=== PATIENT | female | born 1995 | race Caucasian/White ===

== ENCOUNTER 2016-12-25 15:45 | Emergency (ER) | payer OTHER ==
[~2016-12-25] VITALS: Ht 167.6 cm; Wt 65.9 kg
[2016-12-25 15:48] VITALS: TEMP 36.4; Ht 167.6 cm; Wt 65.9 kg
[2016-12-25 16:46] LABS: URINE APPEARANCE TURBID (CLEAR); URINE BILIRUBIN NEG (NEG); URINE COLOR YELLOW; URINE EPITHELIAL CELL AUTO >30 /lpf (0-5); URINE NITRITE POS (NEG); URINE PH 5.5 (4.5-7.5); URINE SPECIFIC GRAVITY 1.014 (1.000-1.030); UROBILINOGEN NEG (NEG); ZZUR CULT IF INDIC CLEAN CATCH YES
[2016-12-25 16:48] LABS: MANUAL MICROSCOPIC REQUIRED? NO; REVIEW REQ? NO
[2016-12-25] MEDS ORDERED: PHENAZOPYRIDINE HCL 200 MG TAB PO STA (16:49)
--- NOTE | 2016-12-25 16:56 | EMERGENCY ROOM VISIT NOTE ---
History Report prepared by Edie: Festus Gregorio Under the Supervision of: Dr. Lisa Noble D.O. First contact with patient: 15:52 Chief Complaint: URINARY SYMPTOMS Stated Complaint: LOWER BACK PAIN,URINE PAIN W/SOME BLOOD History of Present Illness The patient is a 21 year old female who presents to the Emergency Room with complaints of intermittent dysuria that started three days ago. She rates her pain as a 5/10 in severity and states that the pain is only when she is finished peeing. The patient states that she also noticed she was experiencing hematuria two days ago with only a few drops of blood at the end of peeing and a need to urinate more frequently. The patient denies that she feels as if she needs to urinate immediately following an incident of urination. She reports that she has been taking Ibuprofen and admits that it has been helping alleviate pain for a short period of time. The patient states that she has not experienced hematuria today and states that her pain is not as severe since she took Ibuprofen today. She denies abdominal pressure, headache, change in vision , fevers, chest pain, shortness of breath, nausea, vomiting, diarrhea, vaginal bleeding, vaginal discharge, a change in menstrual cycle, pain during sexual intercourse, a possible , previous urinary or bladder infection, and melena. Source of History: patient Onset: three days ago Position: other (global) Symptom Intensity: 5/10 Timing: intermittent Modifying Factors (Relieving): ibuprofen Associated Symptoms: + urinary symptoms, No fevers, No headache, No chest pain, No SOB, No nausea, No vomiting, No abdominal pain, No melena, No diarrhea Review of Systems See HPI for pertinent positives & negatives. A total of 10 systems reviewed and were otherwise negative. Past Medical & Surgical The patient reports no significant medical or surgical history. Family History Patient reports no known family medical history. Social History Smoking Status: Never Smoker Alcohol Use: occasionally Drug Use: none Marital Status: in relationship Housing Status: lives with family Occupation Status: employed Current/Historical Medications Scheduled Cephalexin (Keflex), 1 CAP PO BID Scheduled PRN Phenazopyridine HCl (Pyridium), 200 MG PO TID PRN for Frequency/Burning w/ Urination Allergies Coded Allergies: No Known Allergies (Unverified , 12/25/16) Physical Exam Vital Signs Date Time Temp Pulse Resp B/P (MAP) Pulse Ox O2 Delivery O2 Flow Rate FiO2 12/25/16 17:11 111 18 105/85 100 12/25/16 15:48 36.4 121 18 116/78 100 Room Air Physical Exam GENERAL: alert, well appearing, well nourished, no distress, non-toxic EYE EXAM: normal conjunctiva, PERRL and EOM's grossly intact OROPHARYNX: no exudate, no erythema, lips, buccal mucosa, and tongue normal and mucous membranes are moist NECK: supple, no nuchal rigidity, no adenopathy, non-tender LUNGS: Clear to auscultation. Normal chest wall mechanics HEART: no murmurs, S1 normal and S2 normal ABDOMEN: abdomen soft, non-tender, normo-active bowel sounds, no masses, no rebound or guarding. BACK: Back is symmetrical on inspection and there is no deformity, no midline tenderness, no CVA tenderness. SKIN: no rashes and no bruising UPPER EXTREMITIES: upper extremities are grossly normal. LOWER EXTREMITIES: No pitting edema. NEURO EXAM: Normal sensorium, cranial nerves II-XII grossly intact, normal speech, no gross weakness of arms, no gross weakness of legs. Gross sensation intact. Medical Decision & Procedures Laboratory Results Test 12/25/16 16:30 Urine Color YELLOW Urine Appearance TURBID (CLEAR) Urine pH 5.5 (4.5-7.5) Urine Specific Twining 1.014 (1.000-1.030) Urine Protein 2+ (NEG) Urine Glucose (UA) NEG (NEG) Urine Ketones NEG (NEG) Urine Occult Blood 3+ (NEG) Urine Nitrite POS (NEG) Urine Bilirubin NEG (NEG) Urine Urobilinogen NEG (NEG) Urine Leukocyte Esterase LARGE (NEG) Urine WBC (Auto) >30 /hpf (0-5) Urine RBC (Auto) >30 /hpf (0-4) Urine Hyaline Casts (Auto) 5-10 /lpf (0-5) Urine Epithelial Cells (Auto) >30 /lpf (0-5) Urine Bacteria (Auto) 2+ (NEG) Urine Test NEG (NEG) Laboratory results per my review. Medications Administered Medications (Trade) Dose Ordered Sig/Bartolome Route Start Time Stop Time Status Last Admin Dose Admin Cephalexin Monohydrate (Keflex Cap) 500 mg NOW ONCE PO 12/25/16 17:00 12/25/16 17:01 DC 12/25/16 16:58 500 MG Phenazopyridine HCl (Pyridium Tab) 200 mg NOW STAT PO 12/25/16 16:49 12/25/16 16:50 DC 12/25/16 16:49 200 MG ED Course 1554: The patient was evaluated in room B12B. A complete history and physical exam was performed. 1649: Pyridium Tab 200 mg PO. 1650 Upon reevaluation, the patient is feeling better. I discussed the findings and the treatment plan with the patient. She verbalizes agreement and understanding. The patient was discharged home. 1700: Keflex Cap 500 mg PO. Medical Decision The differential diagnosis includes but is not limited to: etiologies such as UTI, Pyelonephritis, kidney stone, ovarian cyst, PID, ectopic . Medication Reconciliation: I attest that I have personally reviewed the patient' s current medication list. Blood pressure screening: Patient was found to have normal blood pressure on screening and does not require follow-up. Doubt pyelo, stone, ectopic, pid, toa, torsion. Pt sx most consistent with UTI. Pt with stable VS, doubt bacteremia/sepsis. Discussed results with pt, sx to watch/return for, she verbalized understanding and was agreeable with plan. Pt mildly tachycardic, most likely from anxiety regarding condition. Medication Reconcilliation Current Medication List: was personally reviewed by me Blood Pressure Screening Patient's blood pressure: Normal blood pressure Impression Primary Impression: Urinary tract infection Scribe Attestation The scribe's documentation has been prepared under my direction and personally reviewed by me in its entirety. I confirm that the note above accurately reflects all work, treatment, procedures, and medical decision making performed by me. Departure Information Dispostion Home / Self-Care Prescriptions Phenazopyridine HCl (Pyridium) 200 Mg Tab 200 MG PO TID Y for Frequency/Burning w/Urination, #10 TAB Prov: Lisa Noble, DO 12/25/16 Cephalexin (KEFLEX) 500 Mg Cap 1 CAP PO BID for 7 Days, #14 CAP Prov: Lisa Noble, DO 12/25/16 Referrals No Doctor, Assigned (PCP) Patient Instructions My [facility] Additional Instructions Please take the antibiotics as prescribed. Please drink plenty of water. Please consider taking a probiotic while you are on the antibiotic. If you have any worsening pain, notice blood in your urine, develop fevers/chills, vomiting, back pain, or you have any other new or concerning symptoms, please return to the emergency room. Problem Qualifiers Primary Impression: Urinary tract infection Urinary tract infection type: acute cystitis Hematuria presence: with hematuria Qualified Codes: N30.01 - Acute cystitis with hematuria
[2016-12-25] MEDS ORDERED: CEPH-571 PO (16:57)
[2016-12-25] MEDS ORDERED: PHEN-876 PO (16:57)
[2016-12-25] MEDS ORDERED: CEPHALEXIN MONOHYDRATE 250 MG CAP PO ONE (17:00)
[2016-12-25 17:11] VITALS: BP 105/85; PULSE 111; O2SAT 100
== END 2016-12-25 17:13 | disposition home or self-care (01) ==
LOC: C.EDB 15:47
DX: N30.01 Acute cystitis with hematuria (principal)

== ENCOUNTER 2017-08-20 03:29 | Emergency (ER) | payer OTHER ==
[~2017-08-20] VITALS: Ht 167.6 cm; Wt 65.9 kg
[2017-08-20 03:33] VITALS: TEMP 36.8; Ht 167.6 cm; Wt 65.9 kg
[2017-08-20] MEDS ORDERED: HYDROCODONE/ACETAMIN 5/325MG TAB PO ONE (03:45)
[2017-08-20 05:26] VITALS: BP 114/81; PULSE 107; O2SAT 99
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
== END 2017-08-20 05:27 | disposition home or self-care (01) ==
LOC: EDBD 03:29 → C.EDB 03:30
DX: R51 Headache (principal); V49.50XA Passenger injured in collision with unspecified motor vehicles in traffic accident, initial encounter; Y92.410 Unspecified street and highway as the place of occurrence of the external cause